=== PATIENT | female | born 1975 | race Caucasian/White ===

== ENCOUNTER → 2017-01-18 | Outpatient (CLI) | payer OTHER ==
[~2017-01-18] MED LIST: HAIR, SKIN & N1 EACH PO; IBU800 M1 PO; NEURONTIN300 MG PO; OMEPRAZOLE40 MG PO; PHARMASSURE FO0.4 MG PO; VERAPAMIL HCL40 MG PO; VESICARE10 MG PO; VITAMIN B 12 PO
--- NOTE | ~2017-01-18 | WRIGHTHP ---
[place], [place] PATIENT HISTORY AND PHYSICAL EXAM NAME: CRYSTAL NOEL [facility] #: [id number] UNIT #: [id number] ROOM: DOCTOR: LATONYA HOLLIS MD BIRTHDATE: [birth year] DOS: 01/20/2017 DATE OF SURGERY: 01/25/2017 in terms of an LAVH and bilateral salpingectomy. HISTORY OF PRESENT ILLNESS: This is a very pleasant 41-year-old white female, 5, para 5, kindly referred by Dr. Sawyer for hysterectomy. The patient had undergone an endometrial ablation on 05/19/[address] Petit for extremely heavy menses with significant clotting and while the procedure did help somewhat initially to decrease the flow. The patient states that she is back to 8 days, flow was significant clotting, has some significant cramping, especially on the left side as up to 4 days of postmenstrual spotting at times and is very tired of all this. She had a recent ultrasound on 08/05/2016, which revealed normal pelvis and pelvic structures. The patient now had an excellent discussion about situation. We decided the LAVH and bilateral salpingectomy was her best answer. I recommended the laparoscope in association with hysterectomy to evaluate for this premenstrual left lower quadrant pain. The risks, benefits, indications, potential complications and alternatives were reviewed with the patient. She stated understanding and signed a consent. PAST MEDICAL HISTORY: Reveals her to be 5, para 5, all 5 vaginal deliveries. Her surgeries included the endometrial ablation and ear surgery. She has acid reflux and a history of MS. Her last Pap smear was negative in 2016. SOCIAL HISTORY: The patient smokes about a pack a day, does not drink. MEDICATIONS: Takes gabapentin 300 mg b.i.d. for pain, omeprazole 40 mg daily for acid reflux, VESIcare 10 mg daily for an overactive bladder, ibuprofen 800 mg up to t.i.d. for discomfort and folic acid 800 mcg daily. The patient also has had a tubal ligation. ALLERGIES: THE PATIENT STATES THE ONLY ALLERGY IS TO PENICILLIN. REVIEW OF SYSTEMS: Otherwise is stable. FAMILY HISTORY: Reveals her father with heart disease. Her mother is from cervical cancer. PHYSICAL EXAMINATION: GENERAL: Reveals a pleasant white female in no significant distress. She is 5 feet, 497 pounds, BMI is 34. VITAL SIGNS: Blood pressure 118/76 and oxygen saturation is 98%. She has no history of sleep apnea. HEENT: Stable. NECK: Stable. LUNGS: Stable CARDIAC: Stable. BREASTS: Stable. ABDOMEN: Normal. EXTREMITIES: Grossly intact. [place], [place] PATIENT HISTORY AND PHYSICAL EXAM NAME: CRYSTAL NOEL UNIT #: [id number] ROOM: DOCTOR: LATONYA HOLLIS MD BIRTHDATE: [birth year] NEUROLOGIC: Grossly intact. While she has the diagnosis of MS, she has no overt neurologic issues at this time. GENITOURINARY: External genitalia; vagina normal, cervix is very prominent, but otherwise normal. The bimanual exam reveals normal, anteverted and anteflexed uterus. It is mobile, not enlarged, nontender. This is consistent with her recent ultrasound. Her adnexa were negative to palpation and I palpated lower quadrant discomfort at time. RECTAL: Negative. Stool Hematest negative. ASSESSMENT: The patient with significant menorrhagia with irregular cycles, which is recurrent, status post ablation, dysmenorrhea, adnexal tenderness on the left premenstrually, status post tubal ligation. To that end on 01/25/2017, the patient will undergo an LAVH and bilateral salpingectomy. LATONYA HOLLIS MD CM:HISPHYS:PATIENT HISTORY AND PHYSICAL EXAMINATION [id number] LATONYA HOLLIS MD 01/20/17 1109 interface
[2017-01-18 10:06] LABS: BASO % 0.2 % (0.0-1.0); EOS # 0.1 10*3/uL (0.0-0.4); EOS % 0.6 % (1.0-4.0); HEMATOCRIT 43.5 % (37.0-47.0); HEMOGLOBIN 14.8 g/dl (12.0-16.0); LYMPH # 2.1 10*3/uL (1.3-4.4); LYMPH % 19.7 % (27.0-41.0); MEAN CELL VOLUME 94.8 fl (81.0-99.0); MEAN CORPUSCULAR HGB 32.2 pg (27.0-31.0); MEAN PLATELET VOLUME 11.3 fl (9.6-12.3); MONO # 0.6 10*3/uL (0.1-1.0); MONO % 5.3 % (3.0-9.0); NEUT # 7.8 10*3/uL (2.3-7.9); NEUT % 73.7 % (47.0-73.0); PLATELET COUNT AUTOMATED 211 10*3/uL (130-400); RED BLOOD COUNT 4.59 10*6/uL (4.10-5.10); RED CELL DISTRI WIDTH 13.7 % (0-14.5); WHITE BLOOD COUNT 10.6 10*3/uL (4.8-10.8)
== END | disposition home or self-care (01) ==
LOC: LAB 08:52
PROVIDERS: Obstetrics & Gynecology
DX: N92.0 Excessive and frequent menstruation with regular cycle (principal); N94.6 Dysmenorrhea, unspecified; Z98.51 Tubal ligation status

== ENCOUNTER 2017-01-25 04:50 | Inpatient (IN) | payer OTHER ==
[~2017-01-25] VITALS: Ht 162.6 cm; Wt 89.4 kg
[2017-01-25] VITALS (9 sets, daily range): BP systolic 114–160; BP diastolic 61–90
--- NOTE | ~2017-01-25 | O ---
[place], [place] OPERATIVE NOTE NAME: CRYSTAL NOEL UNIT #: [id number] ROOM: 530 DOCTOR: LATONYA HOLLIS MD BIRTHDATE: [birth year] DOS: 01/25/2017 PREOPERATIVE DIAGNOSES: Worsening hypermenorrhea, dysfunctional uterine bleeding gentlewoman who is status post tubal ligation and status post NovaSure ablation at [facility]. POSTOPERATIVE DIAGNOSES: Worsening hypermenorrhea, dysfunctional uterine bleeding gentlewoman who is status post tubal ligation and status post NovaSure ablation at [facility] with addition of bilateral mild hematosalpinges. OPERATIONS: LAVH, bilateral salpingectomy. SURGEON: Dr. Hollis and Dr. Sawyer. ANESTHESIA: General. ESTIMATED BLOOD LOSS: 150-200 mL. REPLACEMENTS: IV fluids, Ofirmev, gentamicin, Cleocin and Toradol. COMPLICATIONS: There were no complications. CONDITION: The patient's condition to recovery stable. OPERATIVE SUMMARY: The patient was taken to the operating room in supine position, general anesthesia with endotracheal intubation, lithotomy position, prepped and draped in routine manner. Catheter was placed to straight drain. Cervix was grasped. Cervical manipulator placed and attention was turned to the abdomen where an infraumbilical suprapubic and right lower quadrant incisions were made. Three 5-mm ports were then placed under direct visualization after we had directly placed our 5-mm trocar sleeve and laparoscope through the infraumbilical incision with CO2 insufflation. Once these tests were completed, we examined the pelvis. The bladder flap was prominent, but otherwise normal. The uterus itself was normal in size, configuration and mobility. The posterior cul-de-sac was normal. It may be that the bilateral small hematosalpinges were responsible for her premenstrual and menstrual discomfort. There was evident obviously of the previous bilateral tubal ligation. The ovaries were normal. The appendix appeared normal. The upper abdomen, what could be visualized, was grossly within normal limits as well. We then introduced our LigaSure device and performed bilateral salpingectomies and then took successive pedicles on either side of the uterus down to roughly the uterine vasculature area and then created a bladder flap without complication. Once this was completed, we removed our instrumentation and turned our attention vaginally where the patient was repositioned, the cervix was regrasped, injected with 1% lidocaine with epinephrine solution in circumferential manner 5 mL followed by making of a circumferential incision. The cervix was significantly enlarged in size. Once this incision was made, the bladder was displaced anteriorly and the rectum posteriorly. We entered both cul-de-sacs without issue. We created uterosacral and cardinal ligament pedicles initially and ligating these with 0 Vicryl in transfixing manner and then we took successive pedicles using the LigaSure [place], [place] OPERATIVE NOTE NAME: CRYSTAL NEOL UNIT #: [id number] ROOM: [facility] DOCTOR: TELMA BALLARD,LATONYA BIRTHDATE: [birth year] device bilaterally to remove the cervix, uterus and fallopian tubes intact. We examined her pedicles carefully and noting good hemostasis and stable sponge and instrument count. We reperitonealized with a pursestring 2-0 Vicryl suture. We closed the vaginal cuff with a series of interrupted [id number] 0 Vicryl sutures. Noting good hemostasis. We reinsufflated the abdomen and replaced our instruments to exam the ovaries and noted them to be hemostatic and within normal limits. The vaginal cuff itself was hemostatic. We examined the sidewalls and noted no atypicalities in the ureters. Having completed this survey and noting good hemostasis, we removed 2 lower abdominal trocar sleeves and instrumentation and noting no bleeding from the anterior abdominal wall, we allowed CO2 to escape and then removed the infraumbilical trocar sleeve. Each incision was closed with subcuticular 3-0 Monocryl suture, steri-Strips and dressings placed. The patient was cleaned off, taken out of lithotomy position, awakened, extubated and transferred to recovery in satisfactory condition, having had clear and adequate urine output throughout the case. Stable sponge and instrument count, good vital signs, stable vital signs and good hemostasis. LATONYA HOLLIS MD CM:OPRECORD:OPERATIVE NOTE 0923 140 LATONYA HOLLIS MD 01/25/17 140 interface
--- NOTE | ~2017-01-25 | WRIGHTHP ---
[place], [place] PATIENT HISTORY AND PHYSICAL EXAM NAME: CRYSTAL NOEL [facility] #: [id number] UNIT #: [id number] ROOM: DOCTOR: LATONYA HOLLIS MD BIRTHDATE: [birth year] DOS: 01/20/2017 DATE OF SURGERY: 01/25/2017 in terms of an LAVH and bilateral salpingectomy. HISTORY OF PRESENT ILLNESS: This is a very pleasant 41-year-old white female, 5, para 5, kindly referred by Dr. Sawyer for hysterectomy. The patient had undergone an endometrial ablation on 05/19/[address] Petit for extremely heavy menses with significant clotting and while the procedure did help somewhat initially to decrease the flow. The patient states that she is back to 8 days, flow was significant clotting, has some significant cramping, especially on the left side as up to 4 days of postmenstrual spotting at times and is very tired of all this. She had a recent ultrasound on 08/05/2016, which revealed normal pelvis and pelvic structures. The patient now had an excellent discussion about situation. We decided the LAVH and bilateral salpingectomy was her best answer. I recommended the laparoscope in association with hysterectomy to evaluate for this premenstrual left lower quadrant pain. The risks, benefits, indications, potential complications and alternatives were reviewed with the patient. She stated understanding and signed a consent. PAST MEDICAL HISTORY: Reveals her to be 5, para 5, all 5 vaginal deliveries. Her surgeries included the endometrial ablation and ear surgery. She has acid reflux and a history of MS. Her last Pap smear was negative in 2016. SOCIAL HISTORY: The patient smokes about a pack a day, does not drink. MEDICATIONS: Takes gabapentin 300 mg b.i.d. for pain, omeprazole 40 mg daily for acid reflux, VESIcare 10 mg daily for an overactive bladder, ibuprofen 800 mg up to t.i.d. for discomfort and folic acid 800 mcg daily. The patient also has had a tubal ligation. ALLERGIES: THE PATIENT STATES THE ONLY ALLERGY IS TO PENICILLIN. REVIEW OF SYSTEMS: Otherwise is stable. FAMILY HISTORY: Reveals her father with heart disease. Her mother is from cervical cancer. PHYSICAL EXAMINATION: GENERAL: Reveals a pleasant white female in no significant distress. She is 5 feet, 497 pounds, BMI is 34. VITAL SIGNS: Blood pressure 118/76 and oxygen saturation is 98%. She has no history of sleep apnea. HEENT: Stable. NECK: Stable. LUNGS: Stable CARDIAC: Stable. BREASTS: Stable. ABDOMEN: Normal. EXTREMITIES: Grossly intact. [place], [place] PATIENT HISTORY AND PHYSICAL EXAM NAME: CRYSTAL NOEL UNIT #: [id number] ROOM: DOCTOR: LATONYA HOLLIS MD BIRTHDATE: [birth year] NEUROLOGIC: Grossly intact. While she has the diagnosis of MS, she has no overt neurologic issues at this time. GENITOURINARY: External genitalia; vagina normal, cervix is very prominent, but otherwise normal. The bimanual exam reveals normal, anteverted and anteflexed uterus. It is mobile, not enlarged, nontender. This is consistent with her recent ultrasound. Her adnexa were negative to palpation and I palpated lower quadrant discomfort at time. RECTAL: Negative. Stool Hematest negative. ASSESSMENT: The patient with significant menorrhagia with irregular cycles, which is recurrent, status post ablation, dysmenorrhea, adnexal tenderness on the left premenstrually, status post tubal ligation. To that end on 01/25/2017, the patient will undergo an LAVH and bilateral salpingectomy. LATONYA HOLLSI MD CM:HISPHYS:PATIENT HISTORY AND PHYSICAL EXAMINATION [id number] LATONYA HOLLIS MD 01/22/17 0801 interface
--- NOTE | ~2017-01-25 | DS ---
[place], [place] DISCHARGE SUMMARY NAME: CRYSTAL NOEL UNIT #: [id number] ROOM: 530 DOCTOR: LATONYA HOLLIS MD BIRTHDATE: [birth year] DOS: 01/26/2017 HOSPITAL COURSE: This patient was admitted January 25 in regard to having an LAVH and bilateral salpingectomy for reasons of recurrent DUB, hypermenorrhea, some dysmenorrhea, intermittent left lower quadrant pain associated with her menses and all being status post tubal ligation and status post endometrial ablation in [place]. The patient did undergo an LAVH and bilateral salpingectomy on January 25 without complication with EBL somewhere between 150 and 200 mL. Postoperative day #1, the patient is doing well. Her vital signs are stable. Her lungs and cardiac exam are stable. Her abdomen is soft with good bowel sounds and no distention. Her operative sites are stable. She has no significant vaginal bleeding. Her calves and IV site are stable. The patient and I reviewed the pictures from the surgery and understanding was stated. We also reviewed discharge instructions including increasing activity and diet as tolerated, following up in 6 weeks, contacting office should she have any complications as outlined in the discharge instructions and the use of nonsteroidal anti-inflammatory agents on a p.r.n. basis as well as the use of Percocet 5/325 mg 1 p.o. q.4-6h. p.r.n., #25 given without refill. The patient did state understanding to all the information provided and was discharged in satisfactory condition on postop day #1. LATONYA HOLLIS MD CM:DISCHARG [id number] LATONYA HOLLIS MD 01/26/17 1612 interface
--- NOTE | 2017-01-25 10:45 | NUR ---
Time: 1044 A 41 year old FEMALE admitted to under services of DR. TELMA BALLARD,LATONYA. Pt. [place] via [place] from [place]. Chief complaint: S/P LAP VAG HYSTERECTOMY . DECLAN AGUILAR
--- NOTE | 2017-01-25 12:12 | NUR ---
MED REC VERIFIED WITH PT AND UPDATED
--- NOTE | 2017-01-25 16:48 | NUR ---
PT REQUESTED AND GIVEN PERCOCET FOR C/O ABD PAIN. WILL MONITOR
[2017-01-26] VITALS: BP 122/73
--- NOTE | 2017-01-26 00:58 | NUR ---
MECICATED WITH PRN PERCOCET ORDERD FOR C/O ABDOMINAL AND VAGINAL PAIN RATED A 9.
--- NOTE | 2017-01-26 02:00 | NUR ---
PATIENT STATES EARLIER PERCOCET WAS EFFECTIVE. RESPIRATIONS EASY/REG. NO SXS OF DISTRESS. FLUIDS MAINTAINED PER ORDER. CALL LIGHT IN REACH.
--- NOTE | 2017-01-26 06:30 | NUR ---
SESAY CATH REMOVED AT THIS TIME.
--- NOTE | 2017-01-26 07:30 | NUR ---
DR HOLLIS IN TO SEE PATIENT. WILL DISCHARGE TODAY.
[2017-01-26 08:00] VITALS: BP 130/74
--- NOTE | 2017-01-26 08:15 | NUR ---
Felt Cementer in to talk to patient. Patient states lives at HOME with HER . There are 4 steps in the home. Physician: YANY MORFIN Pharmacy: [facility] IN [place] Home health services: NONE Patient's level of ADLs: INDEPENDENT Patient has working utilities: YES DME: NONE Follow-up physician's appointment after d/c: PREFERS TO MAKE HER OWN APPT Does patient want to access PORTAL?: Discharge plan HOME. ROSE LE
--- NOTE | 2017-01-26 08:24 | NUR ---
Discharge instructions reviewed with patient/family. Patient receptive and verbalizes understanding. Follow-up care arranged. Written instructions given to patient/family. LUIS HUMPHREY
--- NOTE | 2017-01-26 11:22 | NUR ---
Pt now leaving the floor via wheelchair to ride.
== END 2017-01-26 11:24 | disposition home or self-care (01) | DRG 743 ==
LOC: SDC 04:50 → 5E 07:28 → SDC 07:30 → 5E 01-26 11:24
PROVIDERS: ADMIT Obstetrics & Gynecology
PROC: 0UT7FZZ Resection of Bilateral Fallopian Tubes, Via Natural or Artificial Opening With Percutaneous Endoscopic Assistance (ICD-10-PCS; principal; 2017-01-25)
PROC: 0UT9FZL Resection of Uterus, Supracervical, Via Natural or Artificial Opening With Percutaneous Endoscopic Assistance (ICD-10-PCS; principal; 2017-01-25)
DX: N94.6 Dysmenorrhea, unspecified (principal); G35 Multiple sclerosis; K21.9 Gastro-esophageal reflux disease without esophagitis; N92.0 Excessive and frequent menstruation with regular cycle; N83.6 Hematosalpinx; N93.8 Other specified abnormal uterine and vaginal bleeding; F17.210 Nicotine dependence, cigarettes, uncomplicated; Z79.899 Other long term (current) drug therapy; Z98.51 Tubal ligation status; Z88.0 Allergy status to penicillin